=== PATIENT | female | born 1960 | race Two or more races ===

== ENCOUNTER 2019-05-12 11:34 | Emergency (ER) | payer SELFPAY ==
[~2019-05-12] VITALS: Ht 162.6 cm; Wt 69.7 kg
--- NOTE | 2019-05-12 11:57 | NUR ---
first contact with pt. pt c/o CP, palpitations, SOB, anxiety onset last night. pt's aox4. resps even and unlabored. all monitors in place. call light within reach. nsr on manager ui rate 80's at this time. edmd at bedside to evaluate at this time.
[2019-05-12 11:58] VITALS: BP 154/71
--- NOTE | 2019-05-12 12:30 | NUR ---
pt medicated per emar.
== END 2019-05-12 12:35 | disposition home or self-care (01) ==
LOC: ED 12:30
DX: F41.1 Generalized anxiety disorder (principal)
CPT/HCPCS: 93005; 99283